=== PATIENT | female | born 1965 | race Caucasian/White ===

== ENCOUNTER 2025-03-04 00:31 | Day surgery (SDC) | payer OTHER, SELFPAY ==
--- OUTSIDE RECORDS SUMMARY | 2025-03-02 08:42 | XMS_ITS | Encounter Summary ---
Author Organization [facility] Healthcare Address [address] [place] [address] Care Team Providers Care Powerhouse Tender Name Role Phone Jeanine Shaikh MD Unavailable [phone] Dhiraj Hernandez MD Unavailable Shannon Oliver MD Primary Care Provider [phone] Reason for Referral * Diagnostic Imaging (Routine) - Closed Specialty Diagnoses / Procedures Referred By Cyn perry Referred To Contact Diagnoses Encounter for screening mammogram for malignant neoplasm of breast Procedures SCREENING MAMMOGRAM BILATERAL W Shannon Zaldivar MD [address] [place] [address] Phone: tel: fax: [place] [address] Referral ID Status Reason Start Date Expiration Date Visits Re quested Visits Authorized [id number] Closed 03/02/2025 04/01/2026 1 1 Reason for Visit * Diagnostic Imaging (Routine) - Closed Specialty Diagnoses / Procedures Referred By Cyn perry Referred To Contact Diagnoses Encounter for screening mammogram for malignant neoplasm of breast Procedures SCREENING MAMMOGRAM BILATERAL W Shannon Zaldivar MD [address] [address] Phone: tel: fax: [facility] [address] [address] Referral ID Status Reason Start Date Expiration Date Visits Re quested Visits Authorized [id number] Closed 03/02/2025 04/01/2026 1 1 Encounter Details Date Type Department Care Team (Latest Contact Info) Description 03/02/2025 8:42 AM CDT - 03/02/2025 11:59 PM CDT Hospital Encounter [facility] Outpatient [place] [id number] Encounter for screening mammogram for malignant neoplasm of breast Discharge Disposition: Discharge to home or self care Social History Tobacco Use Types Packs/Day Years Used Date Smoking Tobacco: Every Day Cigarettes Smokeless Tobacco: Never Alcohol Use Standard Drinks/Week Comments Never 0 (1 standard drink = 0.6 oz pur e alcohol) Social Connection and Isolation Panel Answer Date Recorded In a typical week, how many times do you talk on the phone with family, friends, or neighbors? More than three times a week 10/11/2020 How often do you get togethe r with friends or relatives? More than three times a week 10/11/2020 How often do you attend chur ch or yarsani services? More than 4 times per year 10/11/2020 Active Member of Clubs or Organizations Not on f ile 10/11/2020 How often do you attend meet ings of the clubs or organizations you belong to? Never 10/11/2020 Marital Status Not on file 10/11/2020 Overall Financial Resource Strain (CARDIA) Answe r Date Recorded How hard is it for you to pa y for the very basics like food, housing, medical care, and heating? Not very hard 10/11/2020 PHQ-2 Answer Date Recorded PHQ-2 Total Score (If total score is 3 or more points, staff should administer the PHQ-9) 6 03/02/2025 Hunger Vital Sign Answer Date Recorded Within the past 12 months, y ou worried that your food would run out before you got the money to buy more. Never true 10/12/19 21 Within the past 12 months, t he food you bought just didn't last and you didn't have money to get more. Never true 10/11/2020 PRAPARE - Transportation Answer Date Re corded In the past 12 months, has l ack of transportation kept you from medical appointments or from getting medications? No 09/18 In the past 12 months, has l ack of transportation kept you from meetings, work, or from getting things needed for daily living? No 10/11/2020 Housing Stability Vital Sign Answer Jose e Recorded In the last 12 months, was t here a time when you were not able to pay the mortgage or rent on time? No 10/11/2020 Number of Places Lived in the Last Year Not on f ile 10/11/2020 In the last 12 months, was t here a time when you did not have a steady place to sleep or slept in a fdc (including now)? No 10/11/2020 PHQ-9 Answer Date Recorded PHQ-9 Total Score 20 03/02/2025 AUDIT-C Answer Date Recorded Q1: How often do you have a drink containing alcohol? Never 03/02/2025 Q2: How many drinks containi ng alcohol do you have on a typical day when you are drinking? Patient does not drink Q3: How often do you have si x or more drinks on one occasion? Never 03/02/2025 Personal Safety Answer Date Recorded Have you ever been in or are you currently in a harmful physical or emotional relationship or is someone making you feel afraid or unsafe? 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 Never 03/02/2025 7:51 AM CDT Yessenia Allen MA Q2: How many drinks containing alcohol do you have on a typical day when you are drinking? Patient does not drink 03/02/2025 7:51 AM CDT Yessenia Allen MA Q3: How often do you have six or more drinks on one occasion? Never 03/02/2025 7:51 AM CDT Yessenia Allen MA documented as of this encounter Medications at Time of Discharge acetaminophen (TYLENOL) 325 mg tabletIndication s:Fever,Pain Take 2 tablets (650 mg total) by mouth every 6 (six) hours as needed for pain or headaches 30 tablet 10/11/2020 albuterol 2.5 mg /3 mL (0.083 %) nebulizer solution Take 3 mL (2.5 mg total) by nebulization every 6 (six) hours as needed 02/24/2021 albuterol HFA (PROVENTIL HFA,VENTOLIN HFA,PROAIR HFA) 90 mcg/actuation inhaler Inhale 1 puff every 6 (six) hours as needed 12/05/2023 budesonide-formo teroL (SYMBICORT) 160-4.5 mcg/actuation inhaler Inhale 2 puffs 2 (two) times a day clopidogreL (PLAVIX) 75 mg tablet Take 1 tablet (75 mg total) by mouth daily 30 tablet 09/08/2024 metoprolol tartrate (LOPRESSOR) 25 mg immediate release tabletIndication s:cardiovascular disease Take 1 tablet (25 mg total) by mouth 2 (two) times a day 60 tablet 11 10/11/2020 QUEtiapine (SEROquel) 25 mg tabletIndication s:Depression Take 2 tablets (50 mg total) by mouth nightly 60 tablet 03/02/2025 5 documented as of this encounter Discharge Disposition Disposition Code Departure Means Destination Discharge to home or self care documented in this encounter Plan of Treatment Pending Results Name Type Priority Associated Diagnoses Date /Time SCREENING MAMMOGRAM BILATERAL W [facility] Imaging Schedule Routine, Read Routine (OP Routine) Encounter for screening mammogram for malignant neoplasm of breast 03/02/2025 9:10 AM CDT Scheduled Orders Name Type Priority Associated Diagnoses Orde r Schedule SCREENING MAMMOGRAM BILATERAL W [facility] Imaging Schedule Routine, Read Routine (OP Routine) Encounter for screening mammogram for malignant neoplasm of breast Once for 1 Occurrences starting 03/02/2025 until 03/02/2025 documented as of this encounter Visit Diagnoses Diagnosis Encounter for screening mammogram for malignant neoplasm of breast documented in this encounter Care Teams Powerhouse Tender Relationship Specialty Start Date End Date Shannon Oliver MD [address] [facility] [address] [place] [address] PCP - General Family Medicine 03/02/25 Jeanine Shaikh MD [address] [place] [address] Consulting Physician Cardiovascular Disease 10/11/20 Dhiraj Hernandez MD [address] [place] [address] Consulting Physician Cardiology 02/05/25 documented as of this encounter
[2025-03-03 13:27] VITALS: BMI 31.6
[2025-03-04] VITALS (16 sets, daily range): BP systolic 102–135; BP diastolic 59–86; PULSE 57–88; RESP 13–20; TEMP 36.6; O2SAT 92–100; BMI 30.6
--- OUTSIDE RECORDS SUMMARY | 2025-03-04 00:33 | XMS_ITS | Encounter Summary ---
Author Organization [facility] Healthcare Address [address] [place] [address] Care Team Providers Care Customer Response Representative Name Role Phone Jeanine Shaikh MD Unavailable [phone] Dhiraj Hernandez MD Unavailable Shannon Oliver MD Primary Care Provider [phone] Encounter Details Date Type Department Care Team (Late st Contact Info) Description 03/03/2025 Results Follow-Up [facility] Primary Care at [address] [id number] Shannon Oliver MD [address] [place] [address] [address] [place] [address] Hepatitis B surface antibody (immune status) Blood, Hepatitis B core antibody, total Blood, Hepatitis B Surface Antigen Blood, Hepatitis C antibody Blood Social History Tobacco Use Types Packs/Day Years [...] often do you attend chur ch or jain services? More than 4 times per year [...] place to sleep or slept in a nursing home (including now)? 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 Gender Identity Not on file Sexual Orientation Not on file documented as of this encounter Plan of Treatment Not on file documented as of this encounter Visit Diagnoses Not on filedocumented in this encounter Care Teams Customer Response Representative Relationship Specialty Start Date End Date Shannon Oliver MD [address] [place] [address] PCP - General Family Medicine 03/02/25 Jeanine Shaikh MD [address] [place] [address] Consulting Physician Cardiovascular Disease 10/11/20 Dhiraj Hernandez MD [address] [place], [place] [id number] Consulting Physician Cardiology 02/05/25 documented as of this encounter
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
--- OUTSIDE RECORDS SUMMARY | 2025-03-04 00:33 | XMS_ITS | Clinical Summary ---
Author Organization [facility] Address [address] [place] [address] Care Team Providers Care Prosthetics Assistant Name Role Phone Jeanine Shaikh MD Unavailable [phone] Portia Hernandez MD Unavailable Shannon Oliver MD Primary Care Provider [phone] Allergies No known active allergies Medications atorvastatin (LIPITOR) 80 mg tabletIndicati ons:myocardial infarction prevention Take 1 tablet (80 mg total) by mouth nightly 30 tablet 1 Active lisinopriL (PRINIVIL,ZEST RIL) 5 mg tabletIndicati ons:cardiovasc ular disease Take 1 tablet (5 mg total) by mouth daily 30 tablet 1 Active metoprolol tartrate (LOPRESSOR) 25 mg immediate release tabletIndicati ons:cardiovasc ular disease Take 1 tablet (25 mg total) by mouth 2 (two) times a day 60 tablet 1 Active acetaminophen (TYLENOL) 325 mg tabletIndicati ons:Fever,Pain Take 2 tablets (650 mg total) by mouth every 6 (six) hours as needed for pain or headaches 30 tablet 1 Active aspirin 81 mg enteric coated tabletIndicati ons:cardiovasc ular disease Take 1 tablet (81 mg total) by mouth daily 30 tablet 1 Active clopidogreL (PLAVIX) 75 mg tablet Take 1 tablet (75 mg total) by mouth daily 30 tablet 11 5 026 Active albuterol HFA (PROVENTIL HFA,VENTOLIN HFA,PROAIR HFA) 90 mcg/actuation inhaler Inhale 1 puff every 6 (six) hours as needed 4 Active albuterol 2.5 mg /3 mL (0.083 %) nebulizer solution Take 3 mL (2.5 mg total) by nebulization every 6 (six) hours as needed 1 Active budesonide-for moteroL (SYMBICORT) 160-4.5 mcg/actuation inhaler Inhale 2 puffs 2 (two) times a day Active QUEtiapine (SEROquel) 25 mg tabletIndicati ons:Depression Take 2 tablets (50 mg total) by mouth nightly 60 tablet 5 025 Active busPIRone (BUSPAR) 5 mg tabletIndicati ons:Generalize d Anxiety Disorder Take 1 tablet (5 mg total) by mouth 2 (two) times a day 180 tablet 5 025 Discontin ued(Alter airam therapy) Active Problems Problem Noted Date Diagnosed Date Exertional shortness of breath 02/01/2025 Obstructive sleep apnea 02/01/2025 Chronic obstructive pulmonary disease, unspecifi ed 11/11/2020 Essential (primary) hypertension 11/11/2020 Hypercholesterolemia 11/11/2020 NSTEMI (non-ST elevated myocardial infarction) 0 10/08/2020 Overview (10/08/2020): Added automatically from request for surgery [id number] Dyslipidemia Tobacco abuse Encounters Date Type Department Care Team Description 03/03/2025 Results Follow-Up [facility] Primary Care at [address] [phone] Shannon Oliver MD Hepatitis B surface antibody (immune status) Blood, Hepatitis B core antibody, total Blood, Hepatitis B Surface Antigen Blood, Hepatitis C antibody Blood 03/02/2025 9:00 AM CDT Lab [address] [address] Need for hepatitis B screening test; Need for hepatitis C screening test 03/02/2025 8:42 AM CDT - 03/02/2025 11:59 PM CDT Hospital Encounter [address] [address] Encounter for screening mammogram for malignant neoplasm of breast Discharge Disposition: Discharge to home or self care 03/02/2025 8:30 AM CDT Office Visit [facility] Primary Care at [address] [id number] Shannon Oliver MD Chronic bilateral low back pain with left-sided sciatica (Primary Dx); Anxiety and depression; Primary insomnia; Encounter for screening mammogram for malignant neoplasm of breast; Need for hepatitis C screening test; Colon cancer screening; Need for hepatitis B screening test; Need for vaccination 02/08/2025 Telephone [facility] [address] [place] [address] [place] [phone] Dimas Wong MD 02/08/2025 Results Follow-Up [place] [address] [place] [phone] Toña Lynch RN [place] MPI SPECT (Rest and/or Stress) Multiple Studies 02/05/2025 7:45 AM CDT Ancillary Procedure [address] [phone] Exertional shortness of breath 02/01/2025 9:30 AM CDT Office Visit [facility] [address] [place] [phone] Portia Hernandez MD Exertional shortness of breath (Primary Dx); Obstructive sleep apnea; Essential hypertension from Last 3 Months Immunizations Immunization Administration Dates Next Due Hep A, Adult 06/01/2024,09/03/2023 Influenza, Quadrivalent, Split, Intramuscular Influenza, Trivalent, Preservative Free, Intramu scular 03/02/2025 Tdap 10/25/2022 Surgical History Surgery Date Site/Laterality Comments TUBAL LIGATION TONSILLECTOMY FINGER SURGERY Medical History Medical History Date Comments COPD (chronic obstructive pulmonary disease) Hypertension Hyperlipidemia Social History Tobacco Use Types Packs/Day Years Used Date Smoking Tobacco: Every Day Cigarettes Smokeless Tobacco: Never Tobacco Cessation:Ready to Q uit: Not Asked; Counseling Given: Not Answered Alcohol Use Standard Drinks/Week Comments Never 0 [...] often do you attend chur ch or orthodox services? More than 4 times per year [...] place to sleep or slept in a usp (including now)? 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 Gender Identity Not on file Sexual Orientation Not on file Obstetrics History Para Term AB IAB SAB Ectopic Multiple Livin g Live Births 2 2 Date Outcome GA Total Labor Labor/2nd/3rd Weight Sex Type Anes PTL Flores A1 A5 Name Clin Last Filed Vital Signs Vital Sign Reading Time Taken Comments Blood Pressure 104/68 03/02/2025 7:48 AM CDT Pulse 58 03/02/2025 7:48 AM CDT Temperature 36.6 C (97.8 F) 03/02/2025 7:48 AM CDT Respiratory Rate 16 03/02/2025 7:48 AM CDT Oxygen Saturation 96% 03/02/2025 7:48 AM CDT Inhaled Oxygen Concentration - - Weight 91.8 kg (202 lb 4.8 oz) 03/02/2025 7:48 A M CDT Height 170.2 cm (5' 7) 03/02/2025 7:48 AM CDT Body Mass Index 31.68 03/02/2025 7:48 AM CDT Plan of Treatment Health Maintenance Due Date Last Done Comments Breast Cancer Screening-Mammogram 1965 Cervical Cancer Screening 1965 Colon Cancer Screening-Colonoscopy 1965 Regular Well Visit/Exam 18-64 01/19/1984 Pneumococcal vaccine <65 (1 of 2 - PCV) 1985 Zoster Vaccine (1 of 2) 01/19/2016 Covid-19 Vaccine (3 - season) 01/18/202502/2021, 09/29/2020 Depression Screening 03/02/2026 03/02/2025, 03/02/20 DTaP/Tdap/Td Vaccine (2 - Td or Tdap) 10/25/203212/2022 Hepatitis B Screening Completed 03/02/2025 Hepatitis C Screening Completed 03/02/2025 Influenza Vaccine Completed 03/02/2025, 03/15/2022 Medical Devices 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 Device 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 Shelf Expiration Date Model / Serial / Lot [employer] X [id number] Resolute Raymond 3mm 2.1-2.7fr 22mm 140cm Rapid Exchange Radiopaque - [id number] Implanted:Qty: 1 on 10/08/2020 by Romulo Hernandez MD at [facility] [employer] [id number] X / / [employer] X [id number] Resolute Raymond 3.5mm 2.1-2.7fr 30mm 140cm Rapid Exchange - [id number] Implanted:Qty: 1 on 10/08/2020 by Romulo Hernandez MD at [facility] [employer] [id number] X / / [employer] X [id number] Resolute Raymond 2.25mm 2.1-2.7fr 34mm 140cm Rapid Exchange - [id number] Implanted:Qty: 1 on 10/10/2020 [facility] [id number] X / / Procedures Procedure Name Priority Date/Time Associated Diagnosis Comments HEPATITIS C ANTIBODY Routine 03/02/2025 8:47 AM CDT Need for hepatitis C screening test HEPATITIS B SURFACE ANTIGEN Routine 03/02/2025 8:47 AM CDT Need for hepatitis B screening test HEPATITIS B CORE ANTIBODY, TOTAL Routine 03/02/2025 8:47 AM CDT Need for hepatitis B screening test HEPATITIS B SURFACE ANTIBODY (IMMUNE STATUS) Routine 03/02/2025 8:47 AM CDT Need for hepatitis B screening test NM MPI SPECT (REST AND/OR STRESS) MULTIPLE STUDIES Schedule Routine, Read Routine (OP Routine) 02/05/2025 9:07 AM CDT Exertional shortness of breath from Last 3 Months Results * Hepatitis C antibody Blood (03/02/2025 8:47 AM CDT) Hep C Ab Nonreactive Nonreactive Comment: Antibodies to HCV not detected. Does NOT exclude the possibility of recent exposure to HCV. Current interpretive data was last revised on 22 Interpretive Data Nonreactive: Antibodies to HCV not detected. Does NOT exclude the possibility of recent exposure to HCV. Equivocal: Equivocal for HCV antibodies. Supplemental molecular testing will be automatically performed to determine infection status in accordance with current CDC screening recommendations. Reactive: Positive for HCV antibodies. This may represent current or past HCV infection. Supplemental molecular testing will be automatically performed to determine current infection status in accordance with current CDC screening recommendations. Interpretive data was last revised on 2019. Blood 03/02/2025 8:47 AM CDT 03/02/2025 11:18 AM CDT Shannon Oliver MD LAB MICROBIOLOGY - GENERA L ORDERABLES Final Result [facility] [address] [facility] Department [place] [address] * (ABNORMAL) Hepatitis B core antibody, total Blood (03/02/2025 8:47 AM CDT) Hep B core IgG/IgM Reactive( A) Nonreactive Comment:Testing performed by : [facility], [address] [facility], [place]., [address] Blood 03/02/2025 8:47 AM CDT 03/02/2025 1:40 PM CDT Shannon Oliver MD LAB MICROBIOLOGY - GENERA L ORDERABLES Final Result Performing Organization Address [facility] Co de Phone Number [address] [place] [address] * Hepatitis B surface antibody (immune status) Blood (03/02/2025 8:47 AM CDT) HBsAb (immune status) Reactive Comment: Interpretive Data Nonreactive: This result is consistent with a lack of immunity to Hepatitis B Virus when used in the setting of routine screening. Equivocal: The immune status of the individual should be further assessed, if appropriate, after consideration of clinical status, risk factors, and additional diagnostic information. Reactive: This result is consistent with immunity to Hepatitis B Virus when used in the setting of routine screening. Current interpretive data was last revised on 19. HBsAb (immune status) index 353.0 mIUnits/m L [facility] Blood 03/02/2025 8:47 AM CDT 03/02/2025 11:18 AM CDT [facility] Breann Oliver MD LAB MICROBIOLOGY - GENERA L ORDERABLES Final Result Performing Organization Address [facility] Co de Phone Number [address] [place] [address] * Hepatitis B Surface Antigen Blood (03/02/2025 8:47 AM CDT) HepBsAg Nonreactive Nonreactive Blood 03/02/2025 8:47 AM CDT 03/02/2025 11:18 AM CDT [facility] Breann Oliver MD LAB MICROBIOLOGY - GENERA L ORDERABLES Final Result Performing Organization Address [facility] Co de Phone Number [address] [place] [address] * NM MPI SPECT (Rest and/or Stress) Multiple Studies (02/05/2025 9:07 AM CDT) Anatomical Region Laterality Modality Body N/A Nuclear Medicine 02/05/2025 8:24 AM CDT Narrative 02/05/2025 1:20 PM CDT [facility] Medical [facility] Cardiology [address], [place] [address] [address], [place] [address] [address], [place] [address] P:[phone] P:[phone] MPI Imaging Report Patient Name: BOZENA MARTINEZ R : 1965 Study Date: 02/05/2025 8:24:35 AM Sex: F Tech: ADONIS RABAGOMT Location: [facility] Provider: PORTIA HERNANDEZ Height(Cm): 170.2 BSA: Weight(Kg): 93 BMI: 32.1 Order Provider: PORTIA HERNANDEZ PHYSICIAN: Primary Care Physician: None. [facility] Physician: Portia Hernandez M.D. Stress Supervision: Chris Suero M.D. Stress Interpreting Physician: Chris Suero M.D. Image Interpreting Physician: Chris Suero M.D. PROCEDURES: Pharmacologic SPECT Report: Myocardial perfusion imaging with Tc99M Sestamibi SPECT at rest and stress post regadenoson (Lexiscan) infusion. INDICATIONS: Chest Pain, Coronary Artery Disease, Hypertension, Family Hx CAD, High Cholesterol, Smoker, and R06.02 Shortness of breath. FINDINGS: Procedural Findings: One day rest/stress was used. Tc99m Sestamibi injected IV at rest was 12.2 millicuries 36.4 millicuries of Tc99M Sestamibi injected IV during Lexiscan stress Lexiscan 0.4mg given IV over 10 seconds with low level exercise: 1.8 MPH Pharmacologic stress related symptoms and/or side effects during infusion include shortness of breath. Symptoms were resolved with rest and completion of Lexiscan protocol. Baseline heart rate was 60 BPM Maximum Heart Rate Achieved was: 89 BPM Baseline blood pressure was 124/64 mmHg Post Stress Blood Pressure was 120/82 mmHg Termination: Protocol complete. Resting ECG: Normal sinus rhythm. Nonspecific T wave abnormality. Post ECG: No diagnostic ST changes. Arrhythmia: No arrhythmias seen. Perfusion Findings: Abnormal perfusion imaging - see below. Technical quality of study is excellent. Prone imaging was not performed. Left ventricle cavity size at rest is normal. Left ventricle cavity size with stress is unchanged. A TID of 1.12 was automatically calculated. defect 1: Size is medium. Severity is moderate. Location of defect is in the mid anterior segment, mid anterolateral segment and apical anterior segment. Reversibility is full. Type of defect is ischemia. LV Function: Global left ventricular function is normal. Left ventricular ejection fraction is 68 %. CONCLUSIONS: Global left ventricular function is normal. Left ventricular ejection fraction is 68 %. Myocardial perfusion imaging is abnormal for a medium sized area of moderate intensity ischemia involving the mid to apical anterior and mid anterolateral wall segments. No infarction. Ischemia present. Negative EKG portion of stress test. Borderline LV enlargement with stress with TID: 1.12. Electronically Signed By: Wilfredo Suero MD 02/05/2025 12:28:34 PM CDT Electronically Signed By: Wilfredo Suero MD 02/05/2025 12:28:34 PM CDT Procedure Note Wilfredo Suero MD - 02/05/2025 [facility] Cardiology [address], [place] [address] [address] [facility] [address], [place] [address] [address], [place] [address] P:[phone] P:[phone] MPI Imaging Report Patient Name: BOZENA MARTINEZ R : 1965 Study Date: 02/05/2025 8:24:35 AM Sex: F Tech: ADONIS RABAGOMT Location: [place] Ref Provider: PORTIA HERNANDEZ Height(Cm): 170.2 BSA: Weight(Kg): 93 BMI: 32.1 Order Provider: PORTIA HERNANDEZ PHYSICIAN: Primary Care Physician: None. [facility] Physician: Portia Hernandez M.D. StressSupervision: Chris Suero M.D. Stress Interpreting Physician: Chris Suero M.D. ImageInterpreting Physician: Chris Suero M.D. PROCEDURES: Pharmacologic SPECT Report: Myocardial perfusion imaging with Tc99M Sestamibi SPECT at rest and stresspost regadenoson (Lexiscan) infusion. INDICATIONS: Chest Pain, Coronary Artery Disease, Hypertension, Family Hx CAD, HighCholesterol, Smoker, and R06.02 Shortness of breath. FINDINGS: Procedural Findings: One day rest/stress was used. Tc99m Sestamibi injected IV at rest was 12.2 millicuries 36.4 millicuries of Tc99M Sestamibi injected IV during Lexiscan stress Lexiscan 0.4mg given IV over 10 seconds with low level exercise: 1.8MPH Pharmacologic stress related symptoms and/or side effects duringinfusion include shortness of breath. Symptoms were resolved with rest and completion of Lexiscan protocol. Baseline heart rate was 60 BPM Maximum Heart Rate Achieved was: 89 BPM Baseline blood pressure was 124/64 mmHg Post Stress Blood Pressure was 120/82 mmHg Termination: Protocol complete. Resting ECG: Normal sinus rhythm. Nonspecific T wave abnormality. Post ECG: No diagnostic ST changes. Arrhythmia: No arrhythmias seen. Perfusion Findings: Abnormal perfusion imaging - see below. Technical quality of study isexcellent. Prone imaging was not performed. Left ventricle cavity size at rest is normal.Left ventricle cavity size with stress is unchanged. A TID of 1.12 was automaticallycalculated. defect 1: Size is medium. Severity is moderate. Location of defect is in the midanterior segment, mid anterolateral segment and apical anterior segment. Reversibility isfull. Type of defect is ischemia. LV Function: Global left ventricular function is normal. Left ventricular ejectionfraction is 68 %. CONCLUSIONS: Global left ventricular function is normal. Left ventricular ejectionfraction is 68 %. Myocardial perfusion imaging is abnormal for a medium sized area ofmoderate intensity ischemia involving the mid to apical anterior and mid anterolateral wallsegments. No infarction. Ischemia present. Negative EKG portion of stress test. Borderline LV enlargement with stress with TID: 1.12. Electronically Signed By: Wilfredo Suero MD 02/05/2025 12:28:34 PM CDT Electronically Signed By: Wilfredo Suero MD 02/05/2025 12:28:34 PM CDT Portia Hernandez MD IMG NM PROCEDURES Final Result from Last 3 Months Insurance [facility] Advance Directives For more information, please contact: [phone] * Full Code (Latest Code Status on File) Date Activated Date Inactivated Comments 10/08/2020 1:40 PM 10/11/2020 6:13 PM * Full Code Date Activated Date Inactivated Comments 10/08/2020 1:39 PM 10/08/2020 1:39 PM Care Teams Prosthetics Assistant Relationship Specialty Start Date End Date Shannon Oliver MD [address] [facility] [address] [place] [address] PCP - General Family Medicine 03/02/25 Jeanine Shaikh MD [address] [place] [address] Consulting Physician Cardiovascular Disease 10/11/20 Portia Hernandez MD [address] [place] [address] Consulting Physician Cardiology 02/05/25
--- NOTE | 2025-03-04 10:06 | P.HP_ITS ---
H&P: HPI History of Present Illness Date/Time: 03/04/25 10:06 Chief Complaint: Abnormal nuclear stress test Narrative: 60-year-old woman with CAD status post PCI breath is proceed with), hypertension, hyperlipidemia who has been experiencing persistent exertional shortness of breath for several months now for which a nuclear stress test had been performed and is abnormal for which a cardiac catheterization possible PCI recommended Review of Systems Cardiovascular: Cardiovascular: Reports as per HPI Respiratory: Respiratory: Reports as per HPI [facility] Past Medical History Medical History (Updated 03/04/25 @ 10:07 by Dhiarj Hernandez MD) History of heart attack COPD (chronic obstructive pulmonary disease) Surgical History Surgical History (Updated 05/05/24 @ 15:41 by Beatriz Mauricio [facility]) H/O tubal ligation H/O hand surgery Hx of tonsillectomy Family History Family History (Updated 05/05/24 @ 15:23 by Beatriz Mauricio CMA) Mother Depression Hypertension Father Depression Heart disease Hypertension Grandparent Depression Hypertension Social History Social History (Updated 05/05/24 @ 15:43 by Beatriz Mauricio [facility]) Smoking status: Current every day smoker Tobacco type: cigarettes Second hand tobacco smoke exposure: Yes Alcohol intake: never Substance use: never Substance use type: does not use Do You Feel Safe in your Home?: Yes Lack of Transportation: YES Lack of Food: Sometimes True Current Housing: I Have Housing Concerned About Future Housing: No Difficulty Paying Gas/Electric Bills: YES Difficulty Paying for Meds: No Currently Unemployed: No Education: High School Diploma/GED Difficulty w/ Childcare or Family Care: No Living arrangements: alone Occupation/Education: occupation 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 Gender identity (if verbalized by the patient): Female Sexual Orientation (if Verbalized by the Patient): Straight or Heterosexual Spiritual care concerns: No Meds Home Medications and Allergies Home Medications ?Medication ?Instructions ?Recorded ?Confirmed ?Type atorvastatin 80 mg tablet 80 mg PO HS 05/05/24 5 History lisinopril 10 mg tablet 10 mg PO DAILY 05/05/2402/17 History metoprolol succinate 25 mg 25 mg PO Q12H 05/05/2402/17 History tablet,extended release 24 hr albuterol sulfate 90 mcg/actuation 1 puff inhalation Q 6H PRN 03/03/25 03/03/25 History aerosol inhaler shortness of breath or wheez ing aspirin 81 mg tablet,delayed 81 mg PO DAILY 03/03/25 1 History release ticagrelor 60 mg tablet 60 mg PO Q12H 03/03/2503/04 History Allergies Allergy/AdvReac Type Severity Reaction Status Date / Time egg Allergy Unknown Unknown Verified 03/04/25 10:04 Exam Const: General: comfortable HENMT: Mouth: Yes moist mucous membranes Eyes: EOM: EOMs intact bilaterally Neck: Neck: no JVD Resp: Effort & Inspection: normal respiratory effort Cardio: Rate: regular rate Rhythm: regular rhythm Neuro: Speech: normal speech Motor exam (neuro): 5/5 motor strength present throughout Assessment and Plan Assessment and plan (1) Abnormal stress test: Code(s): R94.39 - Abnormal result of other cardiovascular function study Status: Acute Plan 60-year-old woman with CAD status post PCI breath is proceed with), hypertension, hyperlipidemia who has been experiencing persistent exertional shortness of breath for several months now for which a nuclear stress test had been performed and is abnormal for which a cardiac catheterization possible PCI recommended After discussing the risks, and benefits, and alternatives, all questions were answered and patient decided to proceed for with the procedure
[2025-03-04 10:20] LABS: Hematocrit 42.0 % (37.0-47.0); Hemoglobin 14.1 g/dL (12.0-15.0); Immature Granulocyte Percent A 0.4 % (0-0.5); Immature Platelet Fraction Pct 16.4 % (0.9-11.2); Lymphocytes Absolute Auto 1.50 K/mm3 (0.9-3.2); Mean Corpuscular HGB Conc 33.6 g/dl (32-36); Mean Corpuscular Hemoglobin 32.0 pg (26-34); Mean Corpuscular Volume 95.5 fl (80-100); Nucleated Red Blood Cells Absolute Auto 0.000 K/mm3 (0.0-0.012); Nucleated Red Blood Cells Perc 0.0 % (0.0-0.2); Platelet Count Result 188 k/mm3 (150-375); Red Blood Count 4.40 M/mm3 (4.2-5.4); White Blood Count 5.5 K/mm3 (4.5-10.0)
[2025-03-04 10:38] LABS: Anion Gap 11 mmol/L (4-12); Blood Urea Nitrogen 8 mg/dL (7-17); Calcium 9.5 mg/dL (8.4-10.2); Carbon Dioxide 22 mmol/L (22-30); Chloride 108 mmol/L (98-107); Estimated CRCL calculation 85 ml/min; Estimated Glomerular Filt Rate > 60; Glucose 129 mg/dL (65-110); Potassium 3.7 mmol/L (3.4-5.0); Sodium 141 mmol/L (137-145)
--- NOTE | 2025-03-04 11:39 | SUR.PREOP ---
Pt states she needs to smoke and nicotene alternatives do not work for her. IV dc'd. Pt allowed to step outside and smoke. Pt also informed RN at this time that she took a med car and will not have transportation home past 5pm. Home Health Manager informed.
--- NOTE | 2025-03-04 12:38 | P.PCNCC_ITS ---
Cardiac Cath Procedure Note Date of procedure:: 03/04/25 Performing physician:: CATHETERIZATION LABORATORY REPORT Procedure Date: 03/04/2025 Referring Physician: Dr. Oliver Anesthesia: Versed and Fentanyl were ordered and given in my presence at 1224, procedure ended at 1236. Supervision of nurse monitored moderate sedation with 2mg Versed and 50mcg Fentanyl and 50mg benadryl was provided for 12 minutes. Pre-op Diagnosis: Abnormal stress test Post-op Diagnosis: Abnormal stress test Procedure(s): Left heart catheterization with coronary angiography Access Site: Right radial artery Brief History and Clinical Indications: All risks, benefits and alternatives to left heart catheterization with or without percutaneous coronary intervention was discussed at length with the patient. Risk of complications including but not limited to bleeding, infection, arrhythmia, stroke, worsening kidney function, blood loss, groin hematoma, limb loss, emergency coronary artery bypass grafting, and even were discussed with the patient and all questions were answered. The patient understood and wished to proceed. Time out called, patient name, date of , medical record number, allergies, procedure performed, identify Visitor Services Information Assistant, patient and staff member concurred with accurate data, procedure carried on. Findings: LEFT HEART CATHETERIZATION FINDINGS: 1. Left main: The left main coronary artery is widely patent without any significant obstructive disease. 2. Left anterior descending: The LAD and the diagonal branches have mild luminal irregularities without any significant obstructive angiographic disease. 3. Left circumflex: The left circumflex artery and the main marginal branches have mild luminal irregularities without any significant obstructive angiographic disease. There is a patent stent in the OM2 vessel. 4. Right coronary artery: The RCA is a large dominant vessel with a patent stent. There is luminal irregularities. 5. Left ventricle: A. End-diastolic pressure 21 mmHg. B. LV gram deferred. C. No significant gradient across aortic valve on catheter pullback. 6. Opening AO pressure 106/61 and closing AO pressure 106/61 Description of Procedure: Informed consent signed and placed in the chart. Patient transferred to [facility] lab[facility] room. Prepped and draped in usual sterile fashion. 2% lidocaine injected subcutaneously in right wrist area. 22-gauge venipuncture catheter used to access the right radial artery with the Seldinger technique. 6-FR slender sheath placed in right radial artery. Nitroglycerin 200mcg, Verapamil 2.5mg, and Heparin 5000U was given intraarterial through the sheath. J wire advanced under fluoroscopy. 5F TIG diagnostic catheter crossed into the left ventricle for LVEDP and aortic valve gradients. After pullback the diagnostic catheter engaged Left Main Coronary Artery and Right Coronary Artery. Multiple orthogonal angiogram obtained and reviewed Hemostasis was achieved by application of TR band. Assessment: Patent stents Post Operative Condition: Stable No significant blood loss Disposition: Home Plan: The patient will be monitored in the recovery area. Continue aggressive medical therapy and risk factor modification. Dhiraj Hernandez Interventional Cardiology
--- NOTE | 2025-03-04 13:29 | SUR.PHASEII ---
Pre-procedure, Pt states she arranged a ride home with her brother.
--- NOTE | 2025-03-04 13:29 | SUR.PHASEII ---
1315. Pt awakening from sedation. Anxious and crying. States she cannot move. Very groggy and is able to wiggle fingers bilaterally and bending her knees. Dr Hernandez notified. At bedside to examine pt. Pt calming down and moving all extremities equally.
--- NOTE | 2025-03-11 14:11 | WPDMODSED ---
Moderate Sedation Note-Pt Data Patient Data Allergies Allergy/AdvReac Type Severity Reaction Status Date / Time egg Allergy Unknown Unknown Verified 03/04/25 10:04 Home Medications ?Medication ?Instructions ?Recorded ?Confirmed ?Type atorvastatin 80 mg tablet 80 mg PO HS 05/05/24 03/03/25 History lisinopril 10 mg tablet 10 mg PO DAILY 05/05/24 03/04/25 History metoprolol succinate 25 mg 25 mg PO Q12H 05/05/24 03/04/25 History tablet,extended release 24 hr albuterol sulfate 90 mcg/actuation 1 puff inhalation Q6H PRN 03/03/25 03/03/25 History aerosol inhaler shortness of breath or wheezing aspirin 81 mg tablet,delayed 81 mg PO DAILY 03/03/25 03/04/25 History release ticagrelor 60 mg tablet 60 mg PO Q12H 03/03/25 03/04/25 History Sedation/Anesthesia: No previous sedation/anesthesia problems (including family history). [facility] Past Medical History Medical History (Updated 03/04/25 @ 10:07 by Dhiraj Hernandez MD) History of heart attack COPD (chronic obstructive pulmonary disease) Surgical History Surgical History (Updated 05/05/24 @ 15:41 by Beatriz Mauricio CMA) H/O tubal ligation H/O hand surgery Hx of tonsillectomy Family History Family History (Updated 05/05/24 @ 15:23 by Beatriz Mauricio CMA) Mother Depression Hypertension Father Depression Heart disease Hypertension Grandparent Depression Hypertension Social History Social History (Updated 05/05/24 @ 15:43 by Beatriz Mauricio CMA) Smoking status: Current every day smoker Tobacco type: cigarettes Second hand tobacco smoke exposure: Yes Alcohol intake: never Substance use: never Substance use type: does not use Do You Feel Safe in your Home?: Yes Lack of Transportation: YES Lack of Food: Sometimes True Current Housing: I Have Housing Concerned About Future Housing: No Difficulty Paying Gas/Electric Bills: YES Difficulty Paying for Meds: No Currently Unemployed: No Education: High School Diploma/GED Difficulty w/ Childcare or Family Care: No Living arrangements: alone Occupation/Education: occupation 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 Gender identity (if verbalized by the patient): Female Sexual Orientation (if Verbalized by the Patient): Straight or Heterosexual Spiritual care concerns: No Mod Sed Physical Exam Physical Exam Pre Procedural Exam: Normal: Lungs, Heart Size, Heart Rate and Heart Rhythm Hours since solid foods: 12 Hours since liquid intake: 12 Mallampati Classification: class II Internal Medicine - PN: Obj Da Labs 03/04/25 10:11 03/04/25 10:11 ASA Classification/Sedation ASA Classification/Sedation ASA Class: III Emergent: No Risks: Risks, benefits and alternatives explained and patient/family accepted plan for sedation. Patient re-evaluated immediately prior to sedation.
== END 2025-03-04 16:28 | disposition home or self-care (01) ==
PROVIDERS: Visit Provider Internal Medicine
PROC: 4A023N7 Measurement of Cardiac Sampling and Pressure, Left Heart, Percutaneous Approach (ICD-10-PCS; CPT 93452; principal; 2025-03-04 11:30)
DX: R94.39 Abnormal result of other cardiovascular function study (principal); I25.10 Atherosclerotic heart disease of native coronary artery without angina pectoris; I10 Essential (primary) hypertension; E78.5 Hyperlipidemia, unspecified; J44.9 Chronic obstructive pulmonary disease, unspecified; I25.2 Old myocardial infarction; F17.210 Nicotine dependence, cigarettes, uncomplicated; Z79.51 Long term (current) use of inhaled steroids; Z79.82 Long term (current) use of aspirin; Z79.02 Long term (current) use of antithrombotics/antiplatelets; Z98.890 Other specified postprocedural states; Z98.51 Tubal ligation status; Z86.79 Personal history of other diseases of the circulatory system; Z82.49 Family history of ischemic heart disease and other diseases of the circulatory system
CPT/HCPCS: 36415; 80048; 85025; 85055; 93458; C1769; C1887; C1894; J1200; J1644; J2003; J2250; J2305; J3010; J7040